=== PATIENT | male | born 1985 | race Caucasian/White ===

== ENCOUNTER 2016-12-12 08:10 | Day surgery (SDC) | payer SELFPAY ==
[~2016-12-12 08:10] MED LIST: HYDROCODON-ACE1 EA16 PO; LISINOPRIL10 M1 PO
== END 2016-12-12 12:24 ==
LOC: SRG 08:10 → SHSB 08:17 → ORE 09:50 → PACU 10:38 → SHSB 11:25
PROC: 0TF3XZZ Fragmentation in Right Kidney Pelvis, External Approach (ICD-10-PCS; principal; 2016-12-12)
DX: N20.0 Calculus of kidney (principal); I10 Essential (primary) hypertension; F41.9 Anxiety disorder, unspecified; F17.210 Nicotine dependence, cigarettes, uncomplicated; F32.9 Major depressive disorder, single episode, unspecified; Z90.49 Acquired absence of other specified parts of digestive tract
CPT/HCPCS: J1956; J2405; J3010